=== PATIENT | female | born 2000 | race Caucasian/White ===

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

== ENCOUNTER 2020-07-25 09:19 | Outpatient (CLI) | payer BC, OTHER ==
[2020-07-25 10:15] LABS: Amorphous Sediment,Urine Few /hpf; Appearance,Urine Turbid (Clear); Bilirubin,Urine Negative (Negative); Blood,Urine Negative (Negative); Color,Urine Yellow; Glucose,Urine (UA) Negative (Negative); Ketones,Urine Negative (Negative); Leukocyte Esterase,Urine Large (Negative); Mucus,Urine Occasional /hpf; Nitrite,Urine Negative (Negative); PH, Urine 7.5 (5.0-8.0); Protein,Urine Negative (Negative); RBC,Urine 2 /hpf (0-5); Specific Gravity,Urine 1.015 (1.001-1.035); Squamous Epithelial Cell,Urine 2 /hpf (0-4); WBC,Urine 5 /hpf (0-5)
[2020-07-25 11:59] VITALS: BP 107/62; PULSE 97; RESP 18; TEMP 97.2
--- NOTE | 2020-07-28 08:04 | P.MSEPDOC ---
Presenting Problems - Arrival Data Date of Arrival on Unit: 07/25/20 Time of Arrival on Unit: 09:19 Mode of Transport: Ambulatory - Complaint OB-Reason for Admission/Chief Complaint: Pain Comment: Pt presents with lower back pain starting last night which radiates down left side of abdomen and into lower abdomen. Rates pain 6/10. Medical History - Information : 3 Para: 2 Term: 1 : 1 Abortions: Spontaneous or Elective: 0 Number of Living Children: 2 - Gestational Age Gestational Age by SIMON (wks/days): 33 Weeks and 1 Days - History Complications: Prior Sexually Transmitted Diseases: HSV Review of Systems - Review of Systems Constitutional: No problems Breast: No problems ENT: No problems Cardiovascular: No problems Respiratory: No problems Gastrointestinal: No problems Genitourinary: No problems Musculoskeletal: No problems Neurological: No problems Skin: No problems Vital Signs - Temperature Temperature: 97.2 F Temperature Source: Temporal Artery Scan - Pulse Pulse Oximetery Pulse Rate: 97 Pulse Assessment Method: Automatic Cuff - Respirations Respiratory Rate: 18 Oxygen Delivery Method: Room Air O2 Sat by Pulse Oximetry: 98 - Blood Pressure Right Arm Blood Pressure: 107/62 Blood Pressure Mean: 77 Blood Pressure Source: Automatic Cuff Medical Screen Scoring (Pre) - Cervical Exam Dilation: 0 cm = 0 Effacement: Exam Deferred Membranes: Intact - Uterine Contractions Frequency: > 5 minutes apart = 1 Duration: > 40 seconds = 2 Intensity: N/A - Maternal Vital Signs Maternal Temperature: N/A Maternal Blood Pressure: N/A Signs of Preeclampsia: N/A Maternal Respirations: N/A - Maternal Trauma Maternal Trauma: N/A - Assessment - Baby A Baseline FHR: 125 Heart Rate - NICHD Category: Category I (Normal) = 0 NST: Reactive Position: N/A Station: N/A - Total Score - Baby A Total Score - Baby A: 3 - Total Score - Baby B Total Score - Baby B: 3 - Total Score - Baby C Total Score - Baby C: 3 - Level of Risk - Baby A Level of Risk - Baby A: Low (0-5) - Level of Risk - Baby B Level of Risk - Baby B: Low (0-5) - Level of Risk - Baby C Level of Risk - Baby C: Low (0-5) Physician Notification (Pre) - Physician Notified Physician Notified Date: 07/25/20 Physician Notified Time: 10:35 New Order Received: Yes - Notification Comment Comment: Dr. Ca called re: maternal status, status, lower back/abdominal pain,. history of delivery, contraction pattern, SVE, and U/A. Orders received to send. FFN and call back with results. Alerted Dr. Ca to negative FFN result. New orders received to d/c pt home with increased fluids and rest this weekend. To keep scheduled appt 08/06/20. Disposition - Disposition OB Disposition: Discharge to home Discharge Date: 07/25/20 Discharge Time: 11:30 I agree with the RN Medical Screening Exam: Yes Case reviewed; plan agreed upon as documented in EMR&OBIX.: Yes Diagnosis: LABOR WITHOUT DELIVERY, THIRD TRIMESTER
== END 2020-07-25 11:30 | disposition home or self-care (01) ==
LOC: FBPOP 09:19
PROVIDERS: ATTEND Obstetrics & Gynecology
DX: O60.03 Preterm labor without delivery, third trimester (principal); Z3A.33 33 weeks gestation of pregnancy
CPT/HCPCS: 59025; 81001; 82731; 99213

== ENCOUNTER 2020-09-08 06:08 | Inpatient (IN) | payer BC, OTHER ==
[2020-09-03 14:44] VITALS: BMI 32.2
[2020-09-08] MEDS ORDERED: LACTATED RINGERS 1,000 ML IV ONE (06:40)
[2020-09-08] MEDS ORDERED: CITRIC ACID-SODIUM CITRATE 15 ML CUP PO ONE (06:45)
[2020-09-08 07:20] LABS: Anisocytosis Slight; Basophils % (A) 0 %; Eosinophils # (A) 0.2 k/uL (0-0.7); Eosinophils % (A) 2 %; HCT 29.4 % (34.0-46.0); HGB 9.5 gm/dL (11.4-16.0); Hypochromasia Moderate; Lymphocytes # (A) 2.1 k/uL (1.0-4.8); Lymphocytes % (A) 29 %; MCH 23.2 pg (25.0-35.0); MCHC 32.4 g/dL (31.0-37.0); MCV 71.6 fL (80.0-100.0); Mean Platelet Volume 9.9; Microcytosis Moderate; Monocytes # (A) 0.2 k/uL (0-1.0); Monocytes % (A) 3 %; Neutrophils # (A) 4.7 k/uL (1.3-7.7); Neutrophils % (A) 64 %; Platelet Count 183 k/uL (150-450); Poikilocytosis Slight; RBC 4.11 m/uL (3.80-5.40); RDW 16.5 % (11.5-15.5); WBC 7.4 k/uL (4.0-11.0)
[2020-09-08] MEDS ORDERED: NALBUPHINE 10 MG/ML (1 ML AMP) ONE (07:57)
[2020-09-08] MEDS ORDERED: PHENYLEPHRINE-0.9% NACL SYG 1,000 MCG/10 ML SYRINGE ONE (07:57)
[2020-09-08] MEDS ORDERED: KETOROLAC 15 MG/ML 1 ML VIAL ONE (07:57)
[2020-09-08] MEDS ORDERED: ceFAZolin 1,000 MG VIAL ONE (07:57)
[2020-09-08] MEDS ORDERED: OXYTOCIN 10 UNIT/ML 1 ML VIAL ONE (07:57)
[2020-09-08] MEDS ORDERED: ONDANSETRON 4 MG/2 ML VIAL ONE (07:57)
[2020-09-08] MEDS ORDERED: SODIUM CHLORIDE 0.9% 100 ML BAG ONE (07:57)
[2020-09-08] MEDS ORDERED: MORPHINE SULFATE (PF) 0.3 MG/0.3 ML SYR ONE (07:57)
[2020-09-08] MEDS ORDERED: ONDANSETRON 4 MG/2 ML VIAL IVP PRN (08:20)
[2020-09-08] MEDS ORDERED: diphenhydrAMINE 50 MG/ML 1 ML VIAL IVP PRN ×3 (08:20→08:36)
[2020-09-08] MEDS ORDERED: MORPHINE SULFATE 2 MG/ML SYRINGE IVP PRN (08:20)
[2020-09-08] MEDS ORDERED: NALOXONE 0.4 MG/ML 1 ML VIAL IV PRN (08:20)
[2020-09-08] MEDS ORDERED: diphenhydrAMINE 50 MG CAP PO PRN (08:36)
[2020-09-08] MEDS ORDERED: diphenhydrAMINE 25 MG CAP PO PRN (08:36)
[2020-09-08] MEDS ORDERED: LANOLIN CREAM 5 GM TUBE TOPICAL PRN (08:36)
[2020-09-08] MEDS ORDERED: ZOLPIDEM 5 MG TAB PO PRN (08:36)
[2020-09-08] MEDS ORDERED: HYDROmorphone 2 MG TAB PO PRN (08:36)
[2020-09-08] MEDS ORDERED: METOCLOPRAMIDE 5 MG/ML 2 ML VIAL IVP PRN (08:36)
--- NOTE | 2020-09-08 08:40 | P.HPOB ---
History of Present Illness H&P Date: 09/08/20 Chief Complaint: repeat low transverse 20-year-old presents at 39 weeks and 4 days for repeat low transverse C- section. Review of Systems All systems: negative Constitutional: Denies chills, Denies fever Eyes: denies blurred vision, denies pain Ears, nose, mouth and throat: Denies headache, Denies sore throat Cardiovascular: Denies chest pain, Denies shortness of breath Respiratory: Denies cough Gastrointestinal: Denies abdominal pain, Denies diarrhea, Denies nausea, Denies vomiting Genitourinary: Denies dysuria, Denies hematuria Musculoskeletal: Denies myalgias Integumentary: Denies pruritus, Denies rash Neurological: Denies numbness, Denies weakness Psychiatric: Denies anxiety, Denies depression Endocrine: Denies fatigue, Denies weight change Past Medical History Past Medical History: No Reported History History of Any Multi-Drug Resistant Organisms: None Reported Past Surgical History: Section Additional Past Surgical History / Comment(s): X2 Past Anesthesia/Blood Transfusion Reactions: No Reported Reaction Past Psychological History: Anxiety Smoking Status: Never smoker Past Alcohol Use History: None Reported Past Drug Use History: None Reported - Past Family History Mother Family Medical History: No Reported History Medications and Allergies Home Medications Medication Instructions Recorded Confirmed Type valACYclovir [Valtrex] 1,000 mg PO DAILY 09/03/20 09/08/20 History Allergies Allergy/AdvReac Type Severity Reaction Status Date / Time No Known Allergies Allergy Verified 09/08/20 06:39 Exam Osteopathic Statement: *. No significant issues noted on an osteopathic structural exam other than those noted in the History and Physical/Consult. Vital Signs Temp Pulse Resp BP Pulse Ox 09/08/20 06:41 97.8 F 95 16 110/65 99 Intake and Output 09/07/20 09/08/20 09/08/20 22:59 06:59 14:59 Other: Weight 84.368 kg Heart: Regular rate and rhythm Lungs: Clear to auscultation bilaterally Abdomen: Soft, nontender Extremities: Negative Homans sign Results Result Diagrams: 09/08/20 07:02 Abnormal Lab Results - Last 24 Hours (Table) 09/08/20 Range/Units 07:02 Hgb 9.5 L (11.4-16.0) gm/dL Hct 29.4 L (34.0-46.0) % MCV 71.6 L (80.0-100.0) fL MCH 23.2 L (25.0-35.0) pg RDW 16.5 H (11.5-15.5) % Assessment and Plan (1) Previous section Current Visit: No Status: Resolved Code(s): Z98.891 - HISTORY OF UTERINE SCAR FROM PREVIOUS SURGERY SNOMED Code(s): 430240548 Plan: 1. Repeat low transverse
--- NOTE | 2020-09-08 08:42 | P.OP ---
Date of Procedure: 09/08/20 Preoperative Diagnosis: 1. at 39 weeks and 4 days 2. Previous section Postoperative Diagnosis: 1. at 39 weeks and 4 days 2. Previous section Procedure(s) Performed: Repeat low transverse Anesthesia: spinal Surgeon: Malka Ca Farmer Cash Grain #1: Mauricio Perez Estimated Blood Loss (ml): 400 IV fluids (ml): 700 Urine output (ml): 100 Pathology: none sent Condition: stable Disposition: floor Operative Findings: Viable male, Apgars 7, 9, weight 8 lbs. 9 oz. Description of Procedure: Patient was taken to the operating room where spinal anesthesia was found be adequate. She was prepped and draped in normal sterile fashion in dorsal supine position with a leftward tilt. Pfannenstiel skin incision was made the scalpel and carried through to the underlying layer of fascia with the scalpel. Fascia was incised in midline and carried bilaterally with the Rincon scissors. The superior aspect of the fascial incision was grasped with Marcus Hook clamps elevated and the underlying rectus muscles dissected off with the Rincon's. Attention was then turned to inferior aspect of same incision which in a similar fashion was grasped tented up and the underlying rectus muscles dissected off with the Rincon's. The rectus muscles were the midline and the peritoneum was identified tented up and entered sharply with the scalpel. The incision was extended superiorly and inferiorly with good visualization of the bladder. The bladder blade was inserted and the vesicouterine peritoneum was incised the Metzenbaums then carried bilaterally and bladder flap created digitally. A low transverse incision was then made on the uterus with the scalpel. This was carried bilaterally and digital manner. Infant's head delivered atraumatically, nose and mouth bulb suctioned, cord clamped and cut, handed off to waiting nurses. Apgars 7,9, weight 8 lbs. 9 oz. Placenta delivered manually, intact with three-vessel cord. The uterus is exteriorized and cleared of all clots and debris. The uterine incision was closed with 0 Vicryl in a running locked fashion. Second layer of the same sutures used in imbricating fashion to obtain excellent hemostasis. Bladder flap was then reapproximated using 2-0 Vicryl in a running fashion. Both ovaries and tubes appeared normal. The uterus was placed back into the abdomen. The peritoneum was reapproximated using 2-0 Vicryl in a running fashion. The muscles were reapproximated using 2- 0 Vicryl in interrupted fashion. The fascia was reapproximated using 0 Vicryl in a running fashion. The subcutaneous tissues closed with 3-0 Vicryl running fashion. The skin was closed pamela. Patient tolerated the procedure well, sponge and instrument counts were correct times 2 and she was taken to the recovery room in stable condition.
[2020-09-08] MEDS: valACYclovir 500 MG TAB PO SCH (09:14)
[2020-09-08] MEDS ORDERED: OXYTOCIN 30 UNITS/500 ML NS 30 UNIT in SALINE 1 500ML.BAG IV SCH (10:00)
[2020-09-08] MEDS: ACETAMINOPHEN TAB 500 MG TAB PO SCH ×2 (10:52→18:44)
[2020-09-08] MEDS: LACTATED RINGERS 1,000 ML IV SCH ×4 (12:10→22:57)
[2020-09-08] MEDS: KETOROLAC 15 MG/ML 1 ML VIAL IVP SCH ×2 (15:33→22:14)
[2020-09-08] MEDS: SENNOSIDES-DOCUSATE SODIUM 1 EACH TAB PO SCH (19:50)
[2020-09-09] MEDS: LACTATED RINGERS 1,000 ML IV SCH ×4 (01:11→22:08)
[2020-09-09] MEDS: ACETAMINOPHEN TAB 500 MG TAB PO SCH ×5 (01:11→22:52)
[2020-09-09] MEDS: KETOROLAC 15 MG/ML 1 ML VIAL IVP SCH (02:22)
[2020-09-09 06:15] LABS: Anisocytosis Slight; Basophils % (A) 0 %; Eosinophils # (A) 0.2 k/uL (0-0.7); Eosinophils % (A) 2 %; HCT 27.6 % (34.0-46.0); HGB 8.8 gm/dL (11.4-16.0); Hypochromasia Moderate; Lymphocytes # (A) 1.3 k/uL (1.0-4.8); Lymphocytes % (A) 14 %; MCH 23.2 pg (25.0-35.0); MCHC 31.9 g/dL (31.0-37.0); MCV 72.5 fL (80.0-100.0); Mean Platelet Volume 8.4; Microcytosis Moderate; Monocytes # (A) 0.3 k/uL (0-1.0); Monocytes % (A) 3 %; Neutrophils # (A) 7.2 k/uL (1.3-7.7); Neutrophils % (A) 80 %; Platelet Count 150 k/uL (150-450); Poikilocytosis Slight; RDW 16.8 % (11.5-15.5); WBC 9.1 k/uL (4.0-11.0)
--- NOTE | 2020-09-09 07:12 | P.PN ---
Progress Note - Text Progress Note Date: 09/09/20 Postoperative day 1 status post section under spinal anesthesia and in trathecal Duramorph for postoperative analgesia.The patient is doing well, there is mild generalized skin itching. There are no other anesthesia related complications. The patient denies any paresthesia or weakness in the lower extremities. Further management as per the patient primary team.
--- NOTE | 2020-09-09 08:06 | P.PNOBGPC ---
Subjective - Subjective Principal diagnosis: S/P RLTCS POD #1 Interval history: Pt seen and examined. Denies N/V, F/C, CP, SOB, calf pain. Pt is taking toradol and tylenol for pain which is well controlled. Tolerating reg diet and passing flatus. Patient reports: Reports appetite normal, Reports voiding normally, Reports pain well controlled, Reports ambulating normally : doing well Objective - Vital Signs Latest vital signs: Vital Signs Temp Pulse Resp BP Pulse Ox 09/09/20 04:51 15 98 09/09/20 04:00 98.7 F 91 15 86/42 98 09/09/20 02:00 15 09/09/20 01:00 96 09/09/20 00:00 98.6 F 85 15 104/54 96 09/08/20 22:00 16 09/08/20 21:00 97 09/08/20 20:00 97.8 F 91 16 94/55 97 09/08/20 17:00 16 98 09/08/20 16:00 97.6 F 79 16 89/52 98 09/08/20 15:00 16 09/08/20 13:21 98 09/08/20 13:00 16 09/08/20 12:00 97.8 F 86 16 94/46 97 09/08/20 11:21 16 09/08/20 11:15 97.2 F L 80 16 95/51 98 09/08/20 10:45 79 16 94/55 98 09/08/20 10:15 79 16 90/55 98 09/08/20 10:00 74 16 99/50 99 09/08/20 09:45 80 16 102/55 99 09/08/20 09:21 16 98 09/08/20 09:15 81 16 90/55 99 09/08/20 09:00 86 16 113/54 98 09/08/20 08:52 16 09/08/20 08:45 97.2 F L 96 16 94/54 99 Intake and Output 09/08/20 09/09/20 09/09/20 22:59 06:59 14:59 Output Total 1100 800 Balance -1100 -800 Output: Urine 1100 800 Other: # Voids 1 - Exam Lungs: bilateral: normal Chest: Normal S1, Normal S2 Extremities: Present: normal Abdomen: Present: normal appearance, soft. Absent: distention, tenderness Incision: Present: normal, dry, intact Uterus: Present: normal, firm - Labs Labs: Abnormal Lab Results - Last 24 Hours (Table) 09/09/20 Range/Units 05:49 Hgb 8.8 L (11.4-16.0) gm/dL Hct 27.6 L (34.0-46.0) % MCV 72.5 L (80.0-100.0) fL MCH 23.2 L (25.0-35.0) pg RDW 16.8 H (11.5-15.5) % Assessment and Plan (1) Status post repeat low transverse section Current Visit: No Status: Acute Code(s): Z98.891 - HISTORY OF UTERINE SCAR FROM PREVIOUS SURGERY SNOMED Code(s): 188739333 Plan: 1. increase ambulation 2. change toradol to motrin 3. dilaudid po for breakthrough pain.
[2020-09-09] MEDS: SENNOSIDES-DOCUSATE SODIUM 1 EACH TAB PO SCH ×2 (08:32→22:08)
[2020-09-09] MEDS: IBUPROFEN 600 MG TAB PO SCH ×2 (08:33→16:25)
[2020-09-09] MEDS ORDERED: MEASLES-MUMPS-RUBELLA VACC/PF 12,500 UNIT/0.5 ML VIAL SQ ONE (17:51)
[2020-09-09] MEDS: valACYclovir 500 MG TAB PO SCH (18:25)
[2020-09-10] MEDS: IBUPROFEN 600 MG TAB PO SCH (04:20)
[2020-09-10 08:09] VITALS: BP 103/67; PULSE 89; RESP 18; TEMP 98.1
--- NOTE | 2020-09-10 08:13 | P.DS ---
Providers Date of admission: 09/08/20 06:08 Expected date of discharge: 09/10/20 Attending physician: Malka Ca Primary care physician: Stated None - Discharge Diagnosis(es) (1) Status post repeat low transverse section Current Visit: No Status: Acute Hospital Course: Patient presented for repeat low transverse . She underwent this procedure without complication. She denies nausea, vomiting, chest pain, shortness of breath or calf pain. Her pain is controlled with Motrin and Tylenol. She'll be discharged home post operative day #2 in stable condition to follow-up with me in one week. Plan - Discharge Summary Discharge Rx Participant: Yes New Discharge Prescriptions: New HYDROcodone/APAP 7.5-325MG [[place] 7.5-325] 1 tab PO Q6HR PRN 3 Days #12 tab PRN Reason: Pain Ibuprofen [Motrin] 600 mg PO Q6HR PRN #30 tab PRN Reason: Mild Pain Or Fever >= 100.5 No Action valACYclovir [Valtrex] 1,000 mg PO DAILY Discharge Medication List valACYclovir [Valtrex] 1,000 mg PO DAILY 09/03/20 [History] HYDROcodone/APAP 7.5-325MG [[place] 7.5-325] 1 tab PO Q6HR PRN 3 Days #12 tab 09/10/20 [Rx] Ibuprofen [Motrin] 600 mg PO Q6HR PRN #30 tab 09/10/20 [Rx] Follow up Appointment(s)/Referral(s): Malka Ca DO [Doctor of Osteopathic Medicine] - 1 Week Discharge Disposition: HOME SELF-CARE
[2020-09-10] MEDS ORDERED: valACYclovir HCL 1,000 MG TABLET PO SCH (10:00)
[2020-09-10] MEDS: SENNOSIDES-DOCUSATE SODIUM 1 EACH TAB PO SCH (10:04)
== END 2020-09-10 10:35 | disposition home or self-care (01) | DRG 788 ==
LOC: 4FBP 06:08
PROVIDERS: ADMIT Obstetrics & Gynecology; ATTEND Obstetrics & Gynecology
PROC: 10D00Z1 Extraction of Products of Conception, Low, Open Approach (ICD-10-PCS; principal; 2020-09-08 08:12)
DX: O34.211 Maternal care for low transverse scar from previous cesarean delivery (principal); O99.344 Other mental disorders complicating childbirth; F41.9 Anxiety disorder, unspecified; O99.73 Diseases of the skin and subcutaneous tissue complicating the puerperium; L29.9 Pruritus, unspecified; Z79.899 Other long term (current) drug therapy; Z37.0 Single live birth; Z3A.39 39 weeks gestation of pregnancy
CPT/HCPCS: 85025; 86850; 86900; 86901; 90707

== ENCOUNTER 2021-01-25 12:21 | Emergency (ER) | payer BC, OTHER ==
[2021-01-25] MEDS ORDERED: SODIUM CHLORIDE 0.9% 1,000 ML IV STA (12:34)
[2021-01-25] MEDS ORDERED: ONDANSETRON 4 MG/2 ML VIAL IVP STA (12:34)
--- NOTE | 2021-01-25 12:37 | ED ---
General Adult HPI - General Chief complaint: Fever Stated complaint: fever Source: patient, RN notes reviewed, old records reviewed Mode of arrival: ambulatory Limitations: no limitations - History of Present Illness Initial comments: 21-year-old white female, nontoxic appearing, presents to the emergency room with complaints of abdominal pain and vomiting that awoke her from sleep at 1 AM. Patient states that she will vomited multiple times mostly water throughout the night and all day today. She denies any diarrhea. She states that she has abdominal cramping that is worse on the left. She also states that she developed a fever today. She denies any dysuria, vaginal discharge or vaginal bleeding. She states her last menstrual period was 2 weeks ago. She states no shortness of breath or cough or sore throat. She denies any sick contacts Patient denies any medical history. She has a history of in the past. No medications on a daily basis. She denies any drug use and is a nonsmoker. -: hour(s) (11) Location: abdomen Radiation: non-radiation Severity scale (1-10): 5 Quality: other (Cramping) Consistency: intermittent Improves with: none Worsens with: other (Vomiting) Associated Symptoms: fever/chills, nausea/vomiting Treatments Prior to Arrival: none - Related Data Home Medications Medication Instructions Recorded Confirmed valACYclovir [Valtrex] 1,000 mg PO DAILY 09/03/20 09/08/20 Previous Rx's Medication Instructions Recorded HYDROcodone/APAP 7.5-325MG [[place] 1 tab PO Q6HR PRN 3 Days #12 tab 09/10/20 7.5-325] Ibuprofen [Motrin] 600 mg PO Q6HR PRN #30 tab 09/10/20 Cephalexin [Keflex] 500 mg PO BID 7 Days #14 cap 01/25/21 Allergies Allergy/AdvReac Type Severity Reaction Status Date / Time No Known Allergies Allergy Verified 01/25/21 12:26 Review of Systems ROS Statement: Those systems with pertinent positive or pertinent negative responses have been documented in the HPI. ROS Other: All systems not noted in ROS Statement are negative. Past Medical History Past Medical History: No Reported History Additional Past Medical History / Comment(s): This is her second . She's given getting progesterone shots for the history of delivery. History of Any Multi-Drug Resistant Organisms: None Reported Past Surgical History: Section Additional Past Surgical History / Comment(s): X2 Past Anesthesia/Blood Transfusion Reactions: No Reported Reaction Past Psychological History: Anxiety Smoking Status: Never smoker Past Alcohol Use History: None Reported Past Drug Use History: None Reported - Past Family History Mother Family Medical History: No Reported History General Exam Limitations: no limitations General appearance: alert, in no apparent distress Head exam: Present: atraumatic, normocephalic, normal inspection Eye exam: Present: normal appearance, PERRL, EOMI. Absent: scleral icterus, conjunctival injection, periorbital swelling ENT exam: Present: normal exam, normal oropharynx, mucous membranes moist Neck exam: Present: normal inspection, full ROM. Absent: tenderness, meningismus, lymphadenopathy, thyromegaly Respiratory exam: Present: normal lung sounds bilaterally. Absent: respiratory distress, wheezes, rales, rhonchi, stridor, chest wall tenderness, accessory muscle use Cardiovascular Exam: Present: normal rhythm, tachycardia, normal heart sounds. Absent: JVD GI/Abdominal exam: Present: soft, tenderness. Absent: distended, guarding, rebound, rigid, mass Extremities exam: Present: normal inspection, full ROM, normal capillary refill. Absent: tenderness, pedal edema, joint swelling, calf tenderness Back exam: Present: normal inspection, full ROM. Absent: tenderness, CVA tenderness (R), CVA tenderness (L), muscle spasm, paraspinal tenderness, vertebral tenderness, rash noted Neurological exam: Present: alert, oriented X3, CN II-XII intact Psychiatric exam: Present: normal affect, normal mood Skin exam: Present: warm, dry, intact, normal color. Absent: rash, cyanosis, diaphoretic Course Vital Signs 01/25/21 01/25/21 01/25/21 12:24 13:22 14:39 Temperature 101.4 F H 99.0 F Pulse Rate 131 H 116 H 92 Respiratory 18 18 16 Rate Blood Pressure 106/63 104/77 101/58 O2 Sat by Pulse 96 98 98 Oximetry Medical Decision Making - Medical Decision Making WBC count is 4.8, hemoglobin and hematocrit is stable. UA shows large leukocyte esterase, WBC count of 104, many bacteria, negative for nitrites or blood. Urine is negative. Patient states she last had a urinary tract infection 2 years ago when she was . CT was done with the patient's complaints of lower abdominal with fever and nausea vomiting and is negative for appendicitis, bowel obstruction or free air. Her pain is likely related to the severity of her urinary tract infection she will be placed on Keflex and directed to follow up with her primary care doctor. - Lab Data Result diagrams: 01/25/21 12:50 01/25/21 12:50 Lab Results 01/25/21 01/25/21 01/25/21 Range/Units 12:50 12:50 12:50 WBC 4.8 (3.8-10.6) k/uL RBC 5.47 H (3.80-5.40) m/uL Hgb 13.7 (11.4-16.0) gm/dL Hct 41.9 (34.0-46.0) % MCV 76.7 L (80.0-100.0) fL MCH 25.1 (25.0-35.0) pg MCHC 32.7 (31.0-37.0) g/dL RDW 14.0 (11.5-15.5) % Plt Count 149 L (150-450) k/uL MPV 9.0 Neutrophils % 83 % Lymphocytes % 12 % Monocytes % 2 % Eosinophils % 1 % Basophils % 0 % Neutrophils # 4.0 (1.3-7.7) k/uL Lymphocytes # 0.6 L (1.0-4.8) k/uL Monocytes # 0.1 (0-1.0) k/uL Eosinophils # 0.1 (0-0.7) k/uL Basophils # 0.0 (0-0.2) k/uL Sodium 137 (137-145) mmol/L Potassium 4.1 (3.5-5.1) mmol/L Chloride 103 (98-107) mmol/L Carbon Dioxide 23 (22-30) mmol/L Anion Gap 11 mmol/L BUN 24 H (7-17) mg/dL Creatinine 0.54 (0.52-1.04) mg/dL Est GFR (CKD-EPI)AfAm >90 (>60 ml/min/1.73 sqM) Est GFR (CKD-EPI)NonAf >90 (>60 ml/min/1.73 sqM) Glucose 107 H (74-99) mg/dL Calcium 9.4 (8.4-10.2) mg/dL Total Bilirubin 0.9 (0.2-1.3) mg/dL AST 33 (14-36) U/L ALT 23 (4-34) U/L Alkaline Phosphatase 57 (38-126) U/L Total Protein 7.3 (6.3-8.2) g/dL Albumin 4.7 (3.5-5.0) g/dL Amylase 54 (30-110) U/L Lipase 100 (23-300) U/L Urine Color Yellow Urine Appearance Cloudy H (Clear) Urine pH 8.0 (5.0-8.0) Ur Specific [place] 1.028 (1.001-1.035) Urine Protein 1+ H (Negative) Urine Glucose (UA) Negative (Negative) Urine Ketones Negative (Negative) Urine Blood Negative (Negative) Urine Nitrite Negative (Negative) Urine Bilirubin Negative (Negative) Urine Urobilinogen <2.0 (<2.0) mg/dL Ur Leukocyte Esterase Large H (Negative) Urine RBC 5 (0-5) /hpf Urine WBC 104 H (0-5) /hpf Ur Squamous Epith Cells 2 (0-4) /hpf Urine Bacteria Many H (None) /hpf Urine Mucus Few H (None) /hpf Urine HCG, Qual (Not Detectd) 01/25/21 Range/Units 12:50 WBC (3.8-10.6) k/uL RBC (3.80-5.40) m/uL Hgb (11.4-16.0) gm/dL Hct (34.0-46.0) % MCV (80.0-100.0) fL MCH (25.0-35.0) pg MCHC (31.0-37.0) g/dL RDW (11.5-15.5) % Plt Count (150-450) k/uL MPV Neutrophils % % Lymphocytes % % Monocytes % % Eosinophils % % Basophils % % Neutrophils # (1.3-7.7) k/uL Lymphocytes # (1.0-4.8) k/uL Monocytes # (0-1.0) k/uL Eosinophils # (0-0.7) k/uL Basophils # (0-0.2) k/uL Sodium (137-145) mmol/L Potassium (3.5-5.1) mmol/L Chloride (98-107) mmol/L Carbon Dioxide (22-30) mmol/L Anion Gap mmol/L BUN (7-17) mg/dL Creatinine (0.52-1.04) mg/dL Est GFR (CKD-EPI)AfAm (>60 ml/min/1.73 sqM) Est GFR (CKD-EPI)NonAf (>60 ml/min/1.73 sqM) Glucose (74-99) mg/dL Calcium (8.4-10.2) mg/dL Total Bilirubin (0.2-1.3) mg/dL AST (14-36) U/L ALT (4-34) U/L Alkaline Phosphatase (38-126) U/L Total Protein (6.3-8.2) g/dL Albumin (3.5-5.0) g/dL Amylase (30-110) U/L Lipase (23-300) U/L Urine Color Urine Appearance (Clear) Urine pH (5.0-8.0) Ur Specific [place] (1.001-1.035) Urine Protein (Negative) Urine Glucose (UA) (Negative) Urine Ketones (Negative) Urine Blood (Negative) Urine Nitrite (Negative) Urine Bilirubin (Negative) Urine Urobilinogen (<2.0) mg/dL Ur Leukocyte Esterase (Negative) Urine RBC (0-5) /hpf Urine WBC (0-5) /hpf Ur Squamous Epith Cells (0-4) /hpf Urine Bacteria (None) /hpf Urine Mucus (None) /hpf Urine HCG, Qual Not Detected (Not Detectd) Disposition Clinical Impression: Urinary tract infection Disposition: HOME SELF-CARE Condition: Good Instructions (If sedation given, give patient instructions): Urinary Tract Infection in Women (ED), Fever in Adults (ED) Additional Instructions: Take medication as prescribed. Increase her fluid intake. Follow-up with your doctor in 1 week. Return with worsening symptoms, including fever, increased abdominal pain or back pain, inability keep fluids down. Prescriptions: Cephalexin [Keflex] 500 mg PO BID 7 Days #14 cap Is patient prescribed a controlled substance at d/c from ED?: No Referrals: Stella Ugarte DO [Primary Care Provider] - 1-2 days Time of Disposition: 14:33
[2021-01-25] MEDS ORDERED: ACETAMINOPHEN TAB 325 MG TAB PO STA (12:51)
[2021-01-25] MEDS ORDERED: IBUPROFEN 600 MG TAB PO STA (12:51)
[2021-01-25 13:08] LABS: Appearance,Urine Cloudy (Clear); Bacteria,Urine Many /hpf; Bilirubin,Urine Negative (Negative); Blood,Urine Negative (Negative); Color,Urine Yellow; Glucose,Urine (UA) Negative (Negative); Ketones,Urine Negative (Negative); Leukocyte Esterase,Urine Large (Negative); Mucus,Urine Few /hpf; Nitrite,Urine Negative (Negative); Protein,Urine 1+ (Negative); RBC,Urine 5 /hpf (0-5); Specific Gravity,Urine 1.028 (1.001-1.035); Squamous Epithelial Cell,Urine 2 /hpf (0-4); Urobilinogen,Urine <2.0 mg/dL (<2.0); WBC,Urine 104 /hpf (0-5)
[2021-01-25 13:21] LABS: Basophils % (A) 0 %; Eosinophils # (A) 0.1 k/uL (0-0.7); Eosinophils % (A) 1 %; HCT 41.9 % (34.0-46.0); HGB 13.7 gm/dL (11.4-16.0); Lymphocytes # (A) 0.6 k/uL (1.0-4.8); Lymphocytes % (A) 12 %; MCH 25.1 pg (25.0-35.0); MCHC 32.7 g/dL (31.0-37.0); MCV 76.7 fL (80.0-100.0); Monocytes # (A) 0.1 k/uL (0-1.0); Monocytes % (A) 2 %; Neutrophils % (A) 83 %; Platelet Count 149 k/uL (150-450); RBC 5.47 m/uL (3.80-5.40); WBC 4.8 k/uL (3.8-10.6)
[2021-01-25 13:35] LABS: ALT 23 U/L (4-34); African American GFR (CKD) >90 (>60 ml/min/1.73 sqM); Albumin 4.7 g/dL (3.5-5.0); Amylase 54 U/L (30-110); Anion Gap 11 mmol/L; Blood Urea Nitrogen 24 mg/dL (7-17); Calcium 9.4 mg/dL (8.4-10.2); Carbon Dioxide 23 mmol/L (22-30); Chloride 103 mmol/L (98-107); Glucose 107 mg/dL (74-99); Lipase 100 U/L (23-300); Non-African American GFR(CKD) >90 (>60 ml/min/1.73 sqM); Sodium 137 mmol/L (137-145); Total Bilirubin 0.9 mg/dL (0.2-1.3); Total Protein 7.3 g/dL (6.3-8.2)
[2021-01-25 13:44] LABS: AST 33 U/L (14-36); Alkaline Phosphatase 57 U/L (38-126); Potassium 4.1 mmol/L (3.5-5.1)
--- NOTE | 2021-01-25 14:18 | CT ---
EXAMINATION TYPE: CT abdomen pelvis w con DATE OF EXAM: 01/25/2021 COMPARISON: None HISTORY: Vomiting, fever CT DLP: 818.8 mGycm Automated exposure control for dose reduction was used. CONTRAST: Performed with IV Contrast, patient injected with 100 mL of Isovue 300. Lung bases are clear. There is no pleural effusion. Heart size is normal. There is no pericardial eff usion. Liver spleen pancreas gallbladder appear intact. The bile ducts are not dilated. Spleen measur es 13.5 cm. There is no adrenal mass. Kidneys show satisfactory contrast opacification. There is no hydronephrosi s. Ureters are not dilated. Appendix is lateral and appears normal. Bladder distends smoothly. There is no inguinal hernia. There is small amount of free fluid in the pelvis. Uterus is retroverted. Lumbar vertebra have normal spacing and alignment. Posterior elements are intact. There is no kishan star fracture. The bony pelvis is intact. The hip joints are intact. There is no evidence of a pelvic mass. There is no mesenteric edema. There is no ascites or free air. There is no bowel obstruction. IMPRESSION: Mild splenomegaly. Normal appendix.
[2021-01-25 14:40] VITALS: RESP 16
[2021-01-25 15:20] VITALS: BP 115/68; PULSE 91; TEMP 98.9
== END 2021-01-25 15:19 | disposition home or self-care (01) ==
LOC: EC 12:21
DX: N39.0 Urinary tract infection, site not specified (principal); F41.9 Anxiety disorder, unspecified; Z79.1 Long term (current) use of non-steroidal anti-inflammatories (NSAID); Z79.891 Long term (current) use of opiate analgesic; Z79.899 Other long term (current) drug therapy
CPT/HCPCS: 36415; 80053; 82150; 83690; 85025; 81001; 81025; 87086; 74177; 96374; 96361; 99284; J2405; Q9967

== ENCOUNTER 2022-12-17 13:10 | Emergency (ER) | payer BC, OTHER ==
[2022-12-17 13:31] VITALS: BP 111/73; PULSE 76; RESP 18; TEMP 99.8
[2022-12-17] MEDS ORDERED: ACETAMINOPHEN TAB 325 MG TAB PO STA (13:42)
[2022-12-17] MEDS ORDERED: IBUPROFEN 600 MG TAB PO STA (13:42)
--- NOTE | 2022-12-17 13:46 | ED ---
Lower Extremity Injury HPI - General Chief Complaint: Extremity Injury, Lower Stated Complaint: fall, R ankle injury Time Seen by Provider: 12/17/22 13:39 Source: patient, RN notes reviewed, old records reviewed Mode of arrival: wheelchair - History of Present Illness Initial Comments: Well-appearing 22-year-old female in hallway [address] presents with complaints of right ankle pain after rolling her ankle last night around 8:30. Patient states she has not had any Tylenol and Motrin today. She has been able to ambulate with minimal weightbearing. Denies any other injuries. MD Complaint: ankle injury, foot injury (right) -: hour(s) (16) Type of Injury: other (rolled) Severity scale (1-10): 8 Improves With: immobilization Worsens With: weight bearing Context: other (rolled) Associated Symptoms: able to partially bear weight - Related Data Home Medications Medication Instructions Recorded Confirmed valACYclovir HCL [Valtrex] 1,000 mg PO DAILY 09/03/20 09/08/20 Previous Rx's Medication Instructions Recorded HYDROcodone/APAP 7.5-325MG [[place] 1 tab PO Q6HR PRN 3 Days #12 tab 09/10/20 7.5-325] Ibuprofen [Motrin] 600 mg PO Q6HR PRN #30 tab 09/10/20 Cephalexin [Keflex] 500 mg PO BID 7 Days #14 cap 01/25/21 Allergies Allergy/AdvReac Type Severity Reaction Status Date / Time No Known Allergies Allergy Verified 01/25/21 12:26 Review of Systems ROS Statement: Those systems with pertinent positive or pertinent negative responses have been documented in the HPI. ROS Other: All systems not noted in ROS Statement are negative. Past Medical History Past Medical History: No Reported History Additional Past Medical History / Comment(s): This is her second . She's given getting progesterone shots for the history of delivery. History of Any Multi-Drug Resistant Organisms: None Reported Past Surgical History: Section Additional Past Surgical History / Comment(s): X3 Past Anesthesia/Blood Transfusion Reactions: No Reported Reaction Past Psychological History: Anxiety, Depression Smoking Status: Never smoker Past Alcohol Use History: None Reported, Rare Past Drug Use History: Marijuana - Past Family History Mother Family Medical History: No Reported History General Exam General appearance: alert, in no apparent distress Head exam: Present: atraumatic Eye exam: Present: normal appearance. Absent: scleral icterus, conjunctival injection, periorbital swelling Respiratory exam: Absent: respiratory distress, accessory muscle use Cardiovascular Exam: Present: regular rate Right Knee exam: Present: full ROM. Absent: tenderness Lower Leg exam: Present: full ROM. Absent: tenderness Ankle exam: Present: tenderness (right lateral malleolus), swelling, ecchymosis Foot/Toe exam: Present: tenderness. Absent: swelling Neurovascular tendon exam: Absent: extremity cold to touch Neurological exam: Present: alert, oriented X3 Psychiatric exam: Present: normal affect, normal mood Skin exam: Present: warm, dry, normal color. Absent: cyanosis, diaphoretic, petechiae, pallor Course Vital Signs 12/17/22 13:24 Temperature 99.8 F H Pulse Rate 76 Respiratory 18 Rate Blood Pressure 111/73 O2 Sat by Pulse 99 Oximetry Medical Decision Making - Medical Decision Making Was pt. sent in by a medical professional or institution (, PA, MANAGER PIPELINE, urgent care, hospital, or snf...) When possible be specific @ -No Did you speak to anyone other than the patient for history (EMS, parent, family, police, friend...)? What history was obtained from this source @ -No Did you review nursing and triage notes (agree or disagree)? Why? @ -I reviewed and agree with nursing and triage notes Were old charts reviewed (outside hosp., previous admission, EMS record, old EKG, old radiological studies, urgent care reports/EKG's, snf records)? Report findings @ -No old charts were reviewed Differential Diagnosis (chest pain, altered mental status, abdominal pain women, abdominal pain men, vaginal bleeding, weakness, fever, dyspnea, syncope, headache, dizziness, GI bleed, back pain, seizure, CVA, palpatations, mental health, musculoskeletal)? @ -Ankle sprain, fracture, dislocation EKG interpreted by me (3pts min.). @ -n/a X-rays interpreted by me (1pt min.). @ -yes X-ray of the right ankle and foot interpreted by me shows no acute fractures. CT interpreted by me (1pt min.). @ -None done U/S interpreted by me (1pt. min.). @ -None done What testing was considered but not performed or refused? (CT, X-rays, U/S, labs)? Why? @ -None What meds were considered but not given or refused? Why? @ -None Did you discuss the management of the patient with other professionals (professionals i.e. , PA, MANAGER PIPELINE, lab, RT, psych nurse, social and political studies professor, glass deposition tender, teacher, chief diversity officer, case management assistant)? Give summary @ -No Was smoking cessation discussed for >3mins.? @ -No Was critical care preformed (if so, how long)? @ -No Were there social determinants of health that impacted care today? How? (Homelessness, low income, unemployed, alcoholism, drug addiction, transportation, low edu. Level, literacy, decrease access to med. care, residential, rehab)? @ -No Was there de-escalation of care discussed even if they declined (Discuss DNR or withdrawal of care, Hospice)? DNR status @ -No What co-morbidities impacted this encounter? (DM, HTN, Smoking, COPD, CAD, Cancer, CVA, ARF, Chemo, Hep., AIDS, mental health diagnosis, sleep apnea, morbid obesity)? @ -None Was patient admitted / discharged? Hospital course, mention meds given and route, prescriptions, significant lab abnormalities, going to OR and other pertinent info. @ -Discharged Well-appearing 22-year-old female in [place] presents with complaints of right ankle pain after rolling her ankle last night around 8:30. Patient states she has not had any Tylenol and Motrin today. She has been able to ambulate with minimal weightbearing. Denies any other injuries. Patient was given Tylenol and Motrin for pain. On physical exam, pedal pulses are present. She has good range of motion. States has been able to ambulate. X-ray of the right ankle and foot interpreted by me shows no acute fractures. Radiologist interpretation is secondary ossification inferior to the lateral malleolus. No acute osseous abnormality of the right foot, or right ankle. Patient was given an ankle stirrup and directed to rest ice elevate and take Tylenol and or Motrin for pain. Follow-up with primary care doctor next week if pain continues. She is agreeable to this plan of care. Case discussed with Dr. López Undiagnosed new problem with uncertain prognosis? @ -No Drug Therapy requiring intensive monitoring for toxicity (Heparin, Nitro, Insulin, Cardizem)? @ -No Were any procedures done? @ -No Diagnosis/symptom? @ -Ankle pain Acute, or Chronic, or Acute on Chronic? @ -Acute Uncomplicated (without systemic symptoms) or Complicated (systemic symptoms)? @ -Uncomplicated Side effects of treatment? @ -No Exacerbation, Progression, or Severe Exacerbation? @ -No Poses a threat to life or bodily function? How? (Chest pain, [place], [place], pneumonia, PE, COPD, DKA, ARF, appy, cholecystitis, CVA, Diverticulitis, Homicidal, Suicidal, threat to staff... and all critical care pts) @ -No Disposition Clinical Impression: Ankle pain, right Disposition: HOME SELF-CARE Condition: Good Instructions (If sedation given, give patient instructions): Ankle Sprain (ED), Ankle Stirrup Splint (ED) Additional Instructions: Wear ankle stirrup for support as needed. Rest ice and elevate. Tylenol Motrin as a for pain. Follow-up with the primary care doctor next week if pain continues Is patient prescribed a controlled substance at d/c from ED?: No Referrals: None,Stated [Primary Care Provider] - 1-2 days Time of Disposition: 14:40
--- NOTE | 2022-12-17 14:23 | XR ---
EXAMINATION TYPE: XR foot complete RT DATE OF EXAM: 12/17/2022 COMPARISON: None HISTORY: Right foot and ankle pain TECHNIQUE: 3 view right foot FINDINGS: No acute displaced fractures are evident. Joint spaces are preserved. Soft tissues are norm al. Follow-up exams cuneiforms 7-10 days of acute trauma for continued pain. IMPRESSION: 1. No acute osseous abnormality right foot
--- NOTE | 2022-12-17 14:26 | XR ---
EXAMINATION TYPE: XR ankle complete RT DATE OF EXAM: 12/17/2022 COMPARISON: None HISTORY: Pain TECHNIQUE: 3 view right ankle FINDINGS: No acute fracture or dislocation is evident. Ankle mortise is intact. Secondary ossificatio n centers inferior to the lateral malleolus. Soft tissues appear normal. Follow up exams can be performed 7-10 days from acute trauma for continued pain. IMPRESSION: 1. No acute osseous abnormality right ankle
== END 2022-12-17 14:50 | disposition home or self-care (01) ==
LOC: EC 13:10
DX: S90.01XA Contusion of right ankle, initial encounter (principal); F12.90 Cannabis use, unspecified, uncomplicated; X50.1XXA Overexertion from prolonged static or awkward postures, initial encounter
CPT/HCPCS: 29515; 99283

== ENCOUNTER 2023-02-28 21:24 | Emergency (ER) | payer OTHER ==
[2023-02-28 21:52] VITALS: TEMP 98.9
[2023-02-28] MEDS ORDERED: SODIUM CHLORIDE 0.9% 2,000 ML IV STA (21:52)
--- NOTE | 2023-02-28 21:52 | ED ---
Nausea/Vomiting/Diarrhea HPI - General Chief complaint: Nausea/Vomiting/Diarrhea Stated complaint: Vomiting, Nausea, 7 weeks Time Seen by Provider: 02/28/23 21:50 Source: patient, RN notes reviewed Mode of arrival: ambulatory Limitations: no limitations - History of Present Illness Initial comments: This is a 23 year old female who presents to the emergency department for nausea and vomiting in . States that she is 7 weeks and and has not been able to keep anything down in over 24 hours. Her first appt with an [facility] is 03/15 at [facility]. She denies any vaginal bleeding or discharge. She did not struggle with morning sickness in her prior pregnancies, and has not been sure how to manage this at home. Denies any fevers, chills, sore throat, cough, dyspnea, chest pain, palpitations, diarrhea, back pain, or headaches. MD complaint: nausea, vomiting - Related Data Home Medications Medication Instructions Recorded Confirmed valACYclovir HCL [Valtrex] 1,000 mg PO DAILY 09/03/20 09/08/20 Previous Rx's Medication Instructions Recorded HYDROcodone/APAP 7.5-325MG [Powers 1 tab PO Q6HR PRN 3 Days #12 tab 09/10/20 7.5-325] Ibuprofen [Motrin] 600 mg PO Q6HR PRN #30 tab 09/10/20 Cephalexin [Keflex] 500 mg PO BID 7 Days #14 cap 01/25/21 Doxylamine Succinate/Vit B6 1 each PO TID PRN #30 tab 03/01/23 [Doxylamine-Pyridoxine 10-10 mg] Ondansetron Odt [Zofran Odt] 4 mg PO Q8HR PRN #30 tab 03/01/23 Allergies Allergy/AdvReac Type Severity Reaction Status Date / Time No Known Allergies Allergy Verified 02/28/23 21:51 Review of Systems ROS Statement: Those systems with pertinent positive or pertinent negative responses have been documented in the HPI. ROS Other: All systems not noted in ROS Statement are negative. Past Medical History Past Medical History: No Reported History Additional Past Medical History / Comment(s): This is her second . She's given getting progesterone shots for the history of delivery. History of Any Multi-Drug Resistant Organisms: None Reported Past Surgical History: Section Additional Past Surgical History / Comment(s): X3 Past Anesthesia/Blood Transfusion Reactions: No Reported Reaction Past Psychological History: Anxiety, Depression Smoking Status: Never smoker Past Alcohol Use History: None Reported, Rare Past Drug Use History: Marijuana - Past Family History Mother Family Medical History: No Reported History General Exam - General Exam Comments Initial Comments: Visual Physical Exam Vital signs reviewed General: Well-appearing, nontoxic, no acute distress. Head: Normocephalic, atraumatic Eyes: PERRLA, EOMI ENT: Airway patent Chest: Nonlabored breathing Skin: No visual rash, normal skin tone Neuro: Alert and oriented 3 Musculoskeletal: No gross abnormalities I performed the QuickNote portion of this chart. Signed Corinna Hutton PA-C. Limitations: no limitations General appearance: alert, in no apparent distress Head exam: Present: atraumatic, normocephalic, normal inspection Respiratory exam: Present: normal lung sounds bilaterally. Absent: respiratory distress, wheezes, rales, rhonchi, stridor Cardiovascular Exam: Present: regular rate, normal rhythm, normal heart sounds. Absent: systolic murmur, diastolic murmur, rubs, gallop, clicks Neurological exam: Present: alert, oriented X3, CN II-XII intact Psychiatric exam: Present: normal affect, normal mood Skin exam: Present: warm, dry, intact, normal color. Absent: rash Course Vital Signs 02/28/23 03/01/23 21:49 01:30 Temperature 98.9 F Pulse Rate 67 88 Respiratory 22 18 Rate Blood Pressure 114/75 121/90 O2 Sat by Pulse 99 97 Oximetry Medical Decision Making - Medical Decision Making This is a 23-year-old female who presents to the emergency department for nausea and vomiting in . Was pt. sent in by a medical professional or institution? @ -No Did you speak to anyone other than the patient for history? @ -No Did you review nursing and triage notes? @ -Yes, and I agree, it is accurate with regards to the patient's symptoms. Were old charts reviewed? @ -No Differential Diagnosis? @ -Differential Nausea and Vomiting: Gastroenteritis, cholecystitis, appendicitis, pancreatitis, migraine, benign positional vertigo, food borne illness, pyelonephritis, irritable bowel syndrome, influenza, Covid, GERD, incarcerated hernia, intestinal obstruction, this is not meant to be an all-inclusive list. EKG interpreted by me (3pts min.)? @ -Not obtained X-rays interpreted by me (1pt min.)? @ -Not obtained CT interpreted by me (1pt min.)? @ -Not obtained U/S interpreted by me (1pt. min.)? @ -Not obtained What testing was considered but not performed? (CT, X-rays, U/S, labs)? Why? @ -None What meds were considered but not given? Why? @ -None Did you discuss the management of the patient with other professionals? @ -No Did you reconcile home meds? @ -No Was smoking cessation discussed for >3mins.? @ -No Was critical care preformed (if so, how long)? @ -No Were there social determinants of health that impacted care today? How? (Homelessness, low income, unemployed, alcoholism, drug addiction, transportation, low edu. Level, literacy, decrease access to med. care, [facility], rehab)? @ -No Was there de-escalation of care discussed even if they declined? (Discuss DNR or withdrawal of care, Hospice)? @ -No What co-morbidities impacted this encounter? (DM, HTN, Smoking, COPD, CAD, Cancer, CVA, Hep., AIDS, mental health diagnosis, sleep apnea, morbid obesity)? @ - Was patient admitted / discharged? @ -Discharged. Lab work obtained and found to be nonactionable. Urinalysis negative for signs of infection. Patient given IV fluids and Zofran, with initial improvement in symptoms. However, shortly afterwards she did start to get some return of the nausea. This was successfully treated with Reglan. Patient was tolerating fluid intake and felt stable for discharge home. Rx for Diclegis and Zofran provided with dosing instructions reviewed. Advised she start with the Diclegis, and if that is not effective, to try taking the Zofran. She'll otherwise slowly advance her diet as tolerated and remain well-hydrated. Also advised she alert her [facility] office of this visit and follow-up sooner if needed. Undiagnosed new problem with uncertain prognosis? @ -None Drug Therapy requiring intensive monitoring for toxicity (Heparin, Nitro, Insulin, Cardizem)? @ -None Were any procedures done? @ -None Diagnosis/symptom? @ -Nausea and vomiting in Acute, or Chronic, or Acute on Chronic? @ -Acute Uncomplicated (without systemic symptoms) or Complicated (systemic symptoms)? @ -Uncomplicated Side effects of treatment? @ -None Exacerbation, Progression, or Severe Exacerbation] @ -Not applicable Poses a threat to life or bodily function? @ -No Return precautions reviewed in depth, the patient is instructed to return to the emergency department with any new, worsening, or concerning symptoms. Patient verbalized understanding. This case was discussed in detail with the attending ED physician, Dr. Roberts. Presentation, findings, and treatment plan discussed in detail as well. - Lab Data Result diagrams: 02/28/23 22:28 02/28/23 22:28 Lab Results 02/28/23 02/28/23 02/28/23 Range/Units 21:58 22:28 22:28 WBC 10.2 (3.8-10.6) k/uL RBC 5.39 (3.80-5.40) m/uL Hgb 13.4 (11.4-16.0) gm/dL Hct 40.6 (34.0-46.0) % MCV 75.3 L (80.0-100.0) fL MCH 24.8 L (25.0-35.0) pg MCHC 33.0 (31.0-37.0) g/dL RDW 14.8 (11.5-15.5) % Plt Count 219 (150-450) k/uL MPV 9.2 Neutrophils % 70 % Lymphocytes % 25 % Monocytes % 2 % Eosinophils % 2 % Basophils % 0 % Neutrophils # 7.1 (1.3-7.7) k/uL Lymphocytes # 2.5 (1.0-4.8) k/uL Monocytes # 0.2 (0-1.0) k/uL Eosinophils # 0.2 (0-0.7) k/uL Basophils # 0.0 (0-0.2) k/uL Microcytosis Slight Sodium 135 L (137-145) mmol/L Potassium 3.6 (3.5-5.1) mmol/L Chloride 102 (98-107) mmol/L Carbon Dioxide 20 L (22-30) mmol/L Anion Gap 13 mmol/L BUN 13 (7-17) mg/dL Creatinine 0.64 (0.52-1.04) mg/dL Est GFR (CKD-EPI)AfAm >90 (>60 ml/min/1.73 sqM) Est GFR (CKD-EPI)NonAf >90 (>60 ml/min/1.73 sqM) Glucose 96 (74-99) mg/dL Calcium 10.1 (8.4-10.2) mg/dL Total Bilirubin 0.6 (0.2-1.3) mg/dL AST 23 (14-36) U/L ALT 17 (4-34) U/L Alkaline Phosphatase 62 (38-126) U/L Total Protein 7.9 (6.3-8.2) g/dL Albumin 4.8 (3.5-5.0) g/dL HCG, Quant 16809.4 mIU/mL Urine Color Yellow Urine Appearance Cloudy H (Clear) Urine pH 6.0 (5.0-8.0) Ur Specific [place] 1.033 (1.001-1.035) Urine Protein 1+ H (Negative) Urine Glucose (UA) Negative (Negative) Urine Ketones 4+ H (Negative) Urine Blood Trace H (Negative) Urine Nitrite Negative (Negative) Urine Bilirubin Negative (Negative) Urine Urobilinogen 2.0 (<2.0) mg/dL Ur Leukocyte Esterase Large H (Negative) Urine RBC 6 H (0-5) /hpf Urine WBC 4 (0-5) /hpf Ur Squamous Epith Cells 3 (0-4) /hpf Urine Mucus Many H (None) /hpf Disposition Clinical Impression: Nausea and vomiting during Disposition: HOME SELF-CARE Instructions (If sedation given, give patient instructions): Nausea and Vomiting in (ED) Additional Instructions: Return to the emergency department with any new, worsening, or concerning symptoms. You can take the doxylamine pyridoxine up to 3 times daily as needed for nausea and vomiting. Start with 2 tablets at night, if symptoms persist af ter 2 days, increase dosage to 1 tablet every morning and 2 tablets at night. You may further increase the dose if needed to 1 tablet in the morning, 1 tablet in the mid to afternoon, and 2 tablets at night, with a maximum of 4 tablets each day. Take this on an empty stomach. If it is too expensive at the pharmacy, you can purchases [id number] vitamin B6 and Unisom for the same effect. Additionally, the Zofran can be taken up to every 8 hours as needed for nausea and vomiting. Follow up with your primary care provider in 1-2 days. Prescriptions: Doxylamine Succinate/Vit B6 [Doxylamine-Pyridoxine 10-10 mg] 1 each PO TID PRN #30 tab PRN Reason: Nausea And Vomiting Ondansetron Odt [Zofran Odt] 4 mg PO Q8HR PRN #30 tab PRN Reason: Nausea And Vomiting Is patient prescribed a controlled substance at d/c from ED?: No Referrals: None,Stated [Primary Care Provider] - 1-2 days
[2023-02-28] MEDS ORDERED: ONDANSETRON 4 MG/2 ML VIAL IVP STA (22:23)
[2023-02-28 22:46] LABS: Basophils % (A) 0 %; Eosinophils # (A) 0.2 k/uL (0-0.7); Eosinophils % (A) 2 %; HCT 40.6 % (34.0-46.0); HGB 13.4 gm/dL (11.4-16.0); Lymphocytes # (A) 2.5 k/uL (1.0-4.8); Lymphocytes % (A) 25 %; MCH 24.8 pg (25.0-35.0); MCV 75.3 fL (80.0-100.0); Mean Platelet Volume 9.2; Microcytosis Slight; Monocytes # (A) 0.2 k/uL (0-1.0); Monocytes % (A) 2 %; Neutrophils # (A) 7.1 k/uL (1.3-7.7); Neutrophils % (A) 70 %; Platelet Count 219 k/uL (150-450); RBC 5.39 m/uL (3.80-5.40); RDW 14.8 % (11.5-15.5); WBC 10.2 k/uL (3.8-10.6)
[2023-02-28 22:53] LABS: Appearance,Urine Cloudy (Clear); Bilirubin,Urine Negative (Negative); Blood,Urine Trace (Negative); Color,Urine Yellow; Glucose,Urine (UA) Negative (Negative); Leukocyte Esterase,Urine Large (Negative); Mucus,Urine Many /hpf; Nitrite,Urine Negative (Negative); Protein,Urine 1+ (Negative); RBC,Urine 6 /hpf (0-5); Specific Gravity,Urine 1.033 (1.001-1.035); Squamous Epithelial Cell,Urine 3 /hpf (0-4); WBC,Urine 4 /hpf (0-5)
[2023-02-28 22:56] LABS: Ketones,Urine 4+ (Negative)
[2023-02-28 22:57] LABS: ALT 17 U/L (4-34); AST 23 U/L (14-36); African American GFR (CKD) >90 (>60 ml/min/1.73 sqM); Albumin 4.8 g/dL (3.5-5.0); Alkaline Phosphatase 62 U/L (38-126); Anion Gap 13 mmol/L; Blood Urea Nitrogen 13 mg/dL (7-17); Calcium 10.1 mg/dL (8.4-10.2); Carbon Dioxide 20 mmol/L (22-30); Chloride 102 mmol/L (98-107); Glucose 96 mg/dL (74-99); Non-African American GFR(CKD) >90 (>60 ml/min/1.73 sqM); Potassium 3.6 mmol/L (3.5-5.1); Sodium 135 mmol/L (137-145); Total Bilirubin 0.6 mg/dL (0.2-1.3); Total Protein 7.9 g/dL (6.3-8.2)
[2023-02-28] MEDS ORDERED: METOCLOPRAMIDE 5 MG/ML 2 ML VIAL IVP STA (23:46)
[2023-02-28 23:54] LABS: HCG,Quantitative Serum 42943.4 mIU/mL
[2023-03-01] MEDS ORDERED: ONDANSETRON 4 MG ODT STARTER PACK 2 TAB BTL PO STA (01:17)
[2023-03-01 01:32] VITALS: BP 121/90; PULSE 88; RESP 18
== END 2023-03-01 01:31 | disposition home or self-care (01) ==
LOC: EC 21:24
DX: O21.9 Vomiting of pregnancy, unspecified (principal); O99.321 Drug use complicating pregnancy, first trimester; F12.90 Cannabis use, unspecified, uncomplicated; Z3A.01 Less than 8 weeks gestation of pregnancy
CPT/HCPCS: 99284; 96374; 96375; 96361 ×2; 36415; 80053; 85025; 81001; 84702; J2405